=== PATIENT | female | born 1970 | race African-American/Black ===

== ENCOUNTER 2025-08-14 07:28 | Inpatient (IN) | payer OTHER, MEDICAID ==
[~2025-08-14] VITALS: Ht 160 cm; Wt 106.6 kg
[2025-08-14] VITALS (7 sets, daily range): BP systolic 154–188; BP diastolic 74–99; PULSE 80–102; RESP 18–20; TEMP 36.2–36.8072; O2SAT 98–99
[~2025-08-14 07:28] MED LIST: ALBU18HF2 IH; AMLO10TA80 PO; ASPI-1406 PO; CARV25TA47 PO; FLUT1DIS3 INH; FURO40TA5 PO; GUAI600T26 MT; IPRA3AMP9 HHN; IPRA3AMP9 NEB; LIP40 PO; MAGN400C PO; METF500T PO; OMEP20CA14 PO; TIRZ2.5P; TRIA1TAB92 MT; VANC250C12 MT
[2025-08-14 08:09] LABS: BASOPHILS % 0.4 % (0.0-2.0); EOSINOPHILS % 5.3 % (0.0-5.0); HEMATOCRIT. 40.8 % (36.0-48.0); HEMOGLOBIN. 13.2 g/dL (12.0-16.0); LYMPHOCYTES % 18.3 % (20.0-50.0); MEAN PLATELET VOLUME 9.8 fl (7.4-10.4); MONOCYTES % 4.8 % (2.0-8.0); NEUTROPHILS % 71.2 % (40.0-76.0); PLATELET 243 x1000/uL (130-400); RED BLOOD CELL COUNT 4.73 mill/uL (4.2-5.4); RED CELL DISTRIBUTION WIDTH 17.5 % (11.6-14.6)
[2025-08-14] MEDS: METHYLPREDNISOLONE SOD SUCC 125MG/2ML (ACT-O-VIAL) IV ONE (08:11)
[2025-08-14] MEDS: IPRATROPIUM BROMIDE (0.02%) 0.5MG/2.5ML NEB HHN SCH (08:12)
[2025-08-14 08:23] LABS: HCG SCREEN NEGATIVE
[2025-08-14 08:25] LABS: CREATININE 1.4 mg/dL (0.6-1.0); UREA NITROGEN BLOOD 14.0 mg/dL (9-23)
[2025-08-14 08:37] LABS: TROPONIN I HIGH SENSITIVITY 42 ng/L (3.0-34)
[2025-08-14] MEDS: ALBUTEROL (0.083%) 2.5MG/3ML NEB HHN SCH (08:48)
[2025-08-14] MEDS ORDERED: MAGNESIUM/ALUMINUM HYDROXIDE/SIMETHICONE 30ML UDC PO PRN (11:15)
[2025-08-14] MEDS ORDERED: ZOLPIDEM TARTRATE 5MG TABLET PO PRN (11:15)
[2025-08-14] MEDS ORDERED: IPRATROPIUM/ALBUTEROL 0.5-3(2.5)MG/3ML NEB HHN PRN (11:15)
[2025-08-14] MEDS ORDERED: ACETAMINOPHEN 325MG TABLET PO PRN (11:15)
[2025-08-14] MEDS ORDERED: ONDANSETRON HCL 4MG/2ML INJ IV PRN (11:15)
[2025-08-14] MEDS ORDERED: CLONIDINE 0.1MG TABLET PO PRN (11:15)
[2025-08-14] MEDS ORDERED: PROMETHAZINE/DEXTROMETHORPHAN 6.25-15MG/5ML PO PRN (11:15)
[2025-08-14] MEDS ORDERED: DIPHENHYDRAMINE 50MG/ML VIAL IV PRN (11:15)
[2025-08-14] MEDS ORDERED: FEBU40TA PO (12:13)
[2025-08-14] MEDS ORDERED: MULT-1146 MT (12:13)
[2025-08-14] MEDS: AMLODIPINE 10MG TABLET PO SCH (13:27)
[2025-08-14] MEDS: METHYLPREDNISOLONE SOD SUCC 40MG/ML (ACT-O-VIAL) IV SCH (13:27)
[2025-08-14] MEDS ORDERED: TRAMADOL 50MG TABLET PO PRN (13:45)
[2025-08-14] MEDS ORDERED: DEXTROSE 50% WATER 50ML SYRINGE IV PRN (13:45)
[2025-08-14] MEDS: BLOOD SUGAR DIAGNOSTIC STRIP TEST SCH (17:26)
[2025-08-14] MEDS: HYDRALAZINE 20MG/ML VIAL IV PRN (17:28)
[2025-08-14] MEDS: SODIUM CHLORIDE 0.9% 3ML FLUSH IVF SCH (17:28)
[2025-08-14] MEDS: METFORMIN HCL 500MG TABLET PO SCH (17:29)
[2025-08-14] MEDS: INSULIN LISPRO 100 UNITS/ML SUBCUT SCH (17:38)
[2025-08-14] MEDS: GUAIFENESIN 600MG ER TABLET PO SCH (21:09)
[2025-08-14] MEDS: PANTOPRAZOLE 40MG DR TABLET PO SCH (21:09)
[2025-08-14] MEDS: ENOXAPARIN 40MG/0.4ML SYR SUBCUT SCH (21:20)
[2025-08-14] MEDS: IPRATROPIUM/ALBUTEROL 0.5-3(2.5)MG/3ML NEB HHN SCH (22:16)
[2025-08-15] VITALS (9 sets, daily range): BP systolic 115–155; BP diastolic 52–101; PULSE 54–102; RESP 18–20; TEMP 36.3–36.7; O2SAT 95–99
[2025-08-15 19:40] LABS: *AMPHETAMINES SCREEN URINE NEGATIVE (NEGATIVE); *BARBITURATES SCREEN URINE NEGATIVE (NEGATIVE); *BENZODIAZEPINES SCREEN URINE NEGATIVE (NEGATIVE); *COCAINE SCREEN URINE NEGATIVE (NEGATIVE); CANNABINOID URINE SCREEN NEGATIVE (NEGATIVE); ECSTASY MDMA SCREEN URINE NEGATIVE (NEGATIVE); METHADONE URINE SCREEN NEGATIVE (NEGATIVE); OPIATES URINE SCREEN NEGATIVE (NEGATIVE); PHENCYCLIDINE URINE SCREEN NEGATIVE (NEGATIVE)
[2025-08-15] MEDS: ACETAMINOPHEN 325MG TABLET PO PRN (22:04)
[2025-08-16] VITALS (8 sets, daily range): BP systolic 143–180; BP diastolic 80–98; PULSE 75–110; RESP 18–20; TEMP 36.3–36.5; O2SAT 76–95
[2025-08-16 06:26] LABS: HEMATOCRIT. 43.7 % (36.0-48.0); HEMOGLOBIN. 14.0 g/dL (12.0-16.0); MEAN PLATELET VOLUME 10.4 fl (7.4-10.4); PLATELET 266 x1000/uL (130-400); RED BLOOD CELL COUNT 5.07 mill/uL (4.2-5.4); RED CELL DISTRIBUTION WIDTH 16.9 % (11.6-14.6)
[2025-08-16 06:27] LABS: CREATININE 1.8 mg/dL (0.6-1.0)
[2025-08-16 06:28] LABS: UREA NITROGEN BLOOD 31 mg/dL (9-23)
[2025-08-16 06:30] LABS: PHOSPHORUS 4.3 mg/dL (2.5-4.9)
[2025-08-16] MEDS: FUROSEMIDE 40MG/4ML VIAL IVP SCH (09:03)
[2025-08-16 14:25] LABS: BAND% 1.0 % (1.0-6.0); LYMPHOCYTES % MANUAL 5.0 % (20.0-60.0); METAMYELOCYTES % 1.0 % (0-0); MONOCYTES % MANUAL 3.0 % (2.0-8.0); NEUTROPHILS % MANUAL 90.0 % (45.0-75.0); PLATELET ESTIMATE NORMAL
== END 2025-08-16 17:42 | disposition home or self-care (01) | DRG 140 ==
LOC: ER 07:28 → 7WST 09:50 → EDBEDREQ 09:53 → EDBEDREQTM 09:53 → ENRESERV 10:33
PROVIDERS: ADMIT Internal Medicine; ATTEND Internal Medicine
DX: J44.1 Chronic obstructive pulmonary disease with (acute) exacerbation (principal); J96.01 Acute respiratory failure with hypoxia; I50.33 Acute on chronic diastolic (congestive) heart failure; I13.0 Hypertensive heart and chronic kidney disease with heart failure and stage 1 through stage 4 chronic kidney disease, or unspecified chronic kidney disease; E66.01 Morbid (severe) obesity due to excess calories; E11.22 Type 2 diabetes mellitus with diabetic chronic kidney disease; N18.9 Chronic kidney disease, unspecified; E87.5 Hyperkalemia; R79.89 Other specified abnormal findings of blood chemistry; F12.90 Cannabis use, unspecified, uncomplicated; S40.012A Contusion of left shoulder, initial encounter; Z55.6 Problems related to health literacy; Z87.891 Personal history of nicotine dependence; Z88.5 Allergy status to narcotic agent; Z88.8 Allergy status to other drugs, medicaments and biological substances; Z79.899 Other long term (current) drug therapy; W18.30XA Fall on same level, unspecified, initial encounter; Y93.89 Activity, other specified; Y92.89 Other specified places as the place of occurrence of the external cause; Y99.8 Other external cause status; Z68.41 Body mass index [BMI] 40.0-44.9, adult
CPT/HCPCS: 36415; 71045; 73030; 80048; 80305; 82962; 83036; 83735; 83880; 84100; 84484; 84703; 85025; 93005; 94070; 94640; 94664; 99291; J0360; J1650; J1815; J1938; J2919